=== PATIENT | male | born 1985 | race Caucasian/White ===

== ENCOUNTER 2019-09-22 14:02 | Emergency (ER) | payer SELFPAY ==
--- NOTE | ~2019-09-22 | CT_ITS ---
EXAMINATION: CT abdomen pelvis wo con DATE: 09/22/2019 15:14 INDICATION: Flank pain TECHNIQUE: Computed tomography (CT) of the abdomen and pelvis was performed without intravenous contr ast. The dose-length product (DLP) was 182.96 mGy-cm. Automated exposure control and iterative recons truction technique were employed. COMPARISON: None FINDINGS: The lung bases are clear. The heart size is normal. The liver, spleen, pancreas, gallbladde r, and adrenal glands are normal. The kidneys are unremarkable. No stones are identified in the kidne ys, ureters, or bladder. There is no hydronephrosis or hydroureter. No pathologically enlarged abdomi nal or pelvic lymph nodes are identified. There is no free intraperitoneal gas or evidence of bowel o bstruction. The appendix is normal. IMPRESSION: 1. No CT correlate for the patient's symptoms. 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
[2019-09-22 14:06] VITALS: BP 133/86; PULSE 63; RESP 18; TEMP 36.7; O2SAT 98
--- NOTE | 2019-09-22 14:18 | ED.GENADULT ---
HPI - General Adult General Chief complaint: Urogenital-Male Stated complaint: left flank pain Time Seen by Provider: 09/22/19 14:17 Source: patient Mode of arrival: ambulatory Limitations: no limitations History of Present Illness HPI narrative: Patient is here for evaluation of left flank and back pain. Started several days ago he did notice that he gets some relief after urination and the volume of urine has been somewhat decreased. He denies any fever, penile discharge or blood in his urine. He states that there is no real history of kidney stones in himself or his family. Onset (ago): day(s) Location: left Radiation: back Severity: moderate Quality: burning Relieving factors: none Exacerbating factors: none Associated symptoms: denies other symptoms Treatments prior to arrival: NSAID (no relief) Related Data Home Medications Medication Instructions Recorded Confirmed No Home Medications 09/22/19 09/22/19 Allergies Allergy/AdvReac Type Severity Reaction Status Date / Time No Known Allergies Allergy Unknown Verified 09/22/19 14:15 Review of Systems Review of Systems: All systems reviewed & are unremarkable except as noted in HPI and below [facility] Past Medical History Medical History (Updated 09/22/19 @ 15:53 by Gabby George PA-C) Cleft palate Social History Social History (Updated 09/22/19 @ 14:26 by Gabby George PA-C) Smoking status: Never smoker Alcohol intake: never Substance use: never Living arrangements: alone Occupation/Education: occupation 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 Exam Const: General: no acute distress Orientation/consciousness: patient oriented x3 HENMT: Head: normal to inspection Eyes: Pupils: Equal, round and reactive pupils present Resp: Effort & Inspection: normal respiratory effort Auscultation: clear to auscultation bilaterally Cardio: Rate: regular rate Rhythm: regular rhythm GI: GI Palp: Yes Soft to palpation and Yes Tenderness to palpation present (GI) (left lower abdomen and suprapubic) Auscultation: normal bowel sounds : General: Yes no CVA tenderness Skin: General skin exam: normal color Rashes: no rashes Neuro: General: patient oriented x3 Psych: Mental Status: mental status grossly normal Course Course Emergency Course: Radiology and lab results reviewed with patient. There is no evidence of renal stone at this time. Further exam patient does wear his wallet on the left hip pocket and perhaps that is contributing to pressure and pain in that region. Will treat as musculoskeletal pain at this time, treat with Tylenol or ibuprofen as needed. Vital Signs Vital signs: Vital Signs Temperature 36.7 C 09/22/19 14:06 Pulse Rate 63 09/22/19 14:06 Respiratory Rate 18 09/22/19 14:06 Blood Pressure 133/86 09/22/19 14:06 Pulse Oximetry 98 09/22/19 14:06 Temperature 36.7 C 09/22/19 14:06 Pulse Rate 63 09/22/19 14:06 Respiratory Rate 18 09/22/19 14:06 Blood Pressure 133/86 09/22/19 14:06 Pulse Oximetry 98 09/22/19 14:06 Medical Decision Making Vital Signs Vital Signs: Vital Signs Temperature 36.7 C 09/22/19 14:06 Pulse Rate 63 09/22/19 14:06 Respiratory Rate 18 09/22/19 14:06 Blood Pressure 133/86 09/22/19 14:06 Pulse Oximetry 98 09/22/19 14:06 Temperature 36.7 C 09/22/19 14:06 Pulse Rate 63 09/22/19 14:06 Respiratory Rate 18 09/22/19 14:06 Blood Pressure 133/86 09/22/19 14:06 Pulse Oximetry 98 09/22/19 14:06 Lab Data Result diagrams: 09/22/19 14:18 09/22/19 14:18 Labs: Lab Results 09/22/19 09/22/19 09/22/19 Range/Units 14:18 14:18 14:18 WBC 7.2 (4.5-10.0) K/mm3 RBC 5.27 (4.6-6.20) M/mm3 Hgb 15.6 (14.0-18.0) g/dL Hct 46.2 (42.0-52.0) % MCV 87.7 (80-100) fl MCH 29.6 (26-34) pg MCHC 33.8 (32-36) g/dl RDW 12.5 (11.5-14.5) % Plt Count 193
[2019-09-22 14:30] LABS: Basophils Absolute Auto 0.1 K/mm3 (0.0-0.1); Basophils Percent Auto 0.7 % (0.2-1.2); Eosinophils Absolute Auto 0.2 K/mm3 (0-0.3); Hematocrit 46.2 % (42.0-52.0); Hemoglobin 15.6 g/dL (14.0-18.0); Immature Granulocyte Absolute 0.02 K/mm3 (0.00-0.031); Immature Granulocyte Percent A 0.3 % (0-0.5); Lymphocytes Absolute Auto 2.12 K/mm3 (0.9-3.2); Lymphocytes Percent Auto 29.3 % (18.3-44.2); Mean Corpuscular HGB Conc 33.8 g/dl (32-36); Mean Corpuscular Hemoglobin 29.6 pg (26-34); Mean Corpuscular Volume 87.7 fl (80-100); Mean Platelet Volume 9.9 fl (7.4-10.4); Monocytes Absolute Auto 0.6 K/mm3 (0.1-0.6); Monocytes Percent Auto 8.7 % (2.6-8.5); Neutrophils Absolute Auto 4.2 K/mm3 (1.3-6.7); Platelet Count Result 193 k/mm3 (150-375); Red Blood Count 5.27 M/mm3 (4.6-6.20); Red Cell Distribution Width 12.5 % (11.5-14.5); White Blood Count 7.2 K/mm3 (4.5-10.0)
[2019-09-22 14:43] LABS: Alanine Aminotransferase 20 U/L (4-50); Albumin Level 4.4 g/dL (3.5-5.1); Alkaline Phosphatase 61 U/L (38-126); Aspartate Amino Transferase 31 U/L (17-59); Bilirubin,Total 0.5 mg/dL (0.2-1.3); Blood Urea Nitrogen 21 mg/dL (9-20); Calcium 9.2 mg/dL (8.4-10.2); Carbon Dioxide 29 mmol/L (22-30); Chloride 104 mmol/L (98-107); Estimated CRCL calculation 87 ml/min; Estimated Glomerular Filt Rate > 60; Glucose 117 mg/dL (75-110); Potassium 3.8 mmol/L (3.4-5.0); Sodium 138 mmol/L (137-145)
[2019-09-22 14:45] LABS: Add Urine Microscopic? YES; Appearance Urine Clear (Clear); Bilirubin Urine Negative (Negative); Blood Urine Negative (Negative); Color Urine Yellow (Yellow); Glucose Urine UA 1+ mg/dL (Negative); Ketones Urine Negative (Negative); Leukocyte Esterase Ur Negative LEU/UL (Negative); Mucus Urine Heavy /lpf; Nitrate Urine Negative (Negative); Protein Urine Negative (Negative); Urobilinogen Urine Negative mg/dL (<2.0); WBC Urine 0-3 /hpf
[2019-09-22 14:46] LABS: Specific Grav Ur 1.033 (1.001-1.035)
[2019-09-22] MEDS: KETOROLAC 30 MG/ML VIAL (*BKC) IV PUSH (15:37)
== END 2019-09-22 16:08 | disposition home or self-care (01) ==
PROVIDERS: Emergency Provider Emergency Medicine
DX: M54.5 Low back pain (principal)
CPT/HCPCS: 36415; 74176; 80053; 81001; 85025; 96374; 99284; J1885

== ENCOUNTER 2019-10-07 09:16 | Emergency (ER) | payer SELFPAY ==
[2019-10-07 09:23] VITALS: BP 139/96; PULSE 84; RESP 18; TEMP 36.8; O2SAT 100
--- NOTE | 2019-10-07 09:26 | ED.URI ---
HPI - URI/Sore Throat General Chief Complaint: Upper Respiratory Infection Stated Complaint: congestion Time Seen by Provider: 10/07/19 09:25 Source: patient and RN notes reviewed Mode of arrival: ambulatory Limitations: no limitations History of Present Illness HPI Narrative: Pt is a 34 y/o male who presents to the ED with c/o congestion that started a week ago. Pt reports associated sinus drainage, morning cough, rhinorrhea, watery eyes, and puffy under eyes. Pt states that he has been cutting his grass and cleaning up leaves in the last week. He states that he started using flonase, 2 squirts in each nostril every morning for 4 days and notes that it usually gives him some relief by the mid-day. Pt states that he used to use claritin and [place] for his allergies but it never gave him any relief. He used to see Dr. Coronel, as his PCP, but has not seen him in a while. Pt denies sore throat, fever, chills, sweats, itchy eyes, sneezing, CP, or SOB. 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 MD elicited complaint: nasal congestion Pertinent past history: seasonal allergies Onset (ago): week(s) (1) Consistency: constant Relieving factors: nasal spray (flonase) Context: other (cutting grass) Associated symptoms: other (sinus drainage, morning cough, rhinorrhea, watery eyes, and puffy under eyes) Related Data Home Medications Medication Instructions Recorded Confirmed fluticasone propionate INTRANASAL 10/07/19 Allergies Allergy/AdvReac Type Severity Reaction Status Date / Time No Known Allergies Allergy Unknown Verified 10/07/19 09:27 Review of Systems Review of Systems: All systems reviewed & are unremarkable except as noted in HPI and below Constitutional: Constitutional: Denies chills, Denies fever(s) and Denies other (sweats) Eyes: Eyes: Denies itchy eyes and Reports other (watery eyes, puffy under eyes) ENT: Reports nasal congestion, Reports nasal discharge, Reports post nasal drip, Denies sore throat and Denies other (sneezing) Cardiovascular: Cardiovascular: Denies chest pain Respiratory: Respiratory: Reports cough (morning) and Denies dyspnea PMFSH Past Medical History Medical History Cleft palate Surgical History Surgical History (Updated 10/07/19 @ 09:41 by Aby Poon) History of facial surgery d/t cleft palate Social History Social History Smoking status: Never smoker Alcohol intake: never Substance use: never 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 Exam Const: General: cooperative, no acute distress and alert Nutritional Appearance: well nourished Orientation/consciousness: patient oriented x3 Limitations: no limitations HENMT: Face and sinus: edema bilaterally periorbital (consistent with allergic shiners ) Mouth: Yes lip normal and Yes moist mucous membranes Resp: Effort & Inspection: normal respiratory effort Auscultation: clear to auscultation bilaterally Cardio: Rate: regular rate Rhythm: regular rhythm GI: GI Palp: Yes Soft to palpation and No Tenderness to palpation present (GI) Auscultation: normal bowel sounds Skin: General skin exam: normal color Neuro: General: patient oriented x3 Cognition (Neuro): normal cognition Speech: normal speech Extrem: General: normal to inspection, full ROM and no clubbing, cyanosis or edema Psych: Mental Status: mental status grossly normal Affect: normal affect Attitude: cooperative Course Course Emergency Course: Patient with longstanding history of seasonal allergies with similar symptomatology. Patient clinical appearance consistent with seasonal allergic rhinitis. Will prescribe antihistamine and Singulair as patient has had poor relief from antihistamines alone in the past. Advised to continue using nasal steroid. Vital Signs Vital signs: Vital Signs Temperature 98
== END 2019-10-07 09:56 | disposition home or self-care (01) ==
PROVIDERS: Emergency Provider Emergency Medicine
DX: J30.2 Other seasonal allergic rhinitis (principal)
CPT/HCPCS: 99283

== ENCOUNTER 2021-05-20 16:46 | Emergency (ER) | payer SELFPAY ==
[2021-05-20 17:17] VITALS: BP 141/82; PULSE 81; RESP 20; TEMP 37; O2SAT 98
--- NOTE | 2021-05-20 19:19 | PC.NURSE ---
no answer at triage
== END 2021-05-20 19:31 | disposition left against medical advice (07) ==
DX: Z53.21 Procedure and treatment not carried out due to patient leaving prior to being seen by health care provider (principal)
CPT/HCPCS: 99199

== ENCOUNTER 2021-08-07 06:08 | Emergency (ER) | payer SELFPAY ==
[2021-08-07 06:16] VITALS: BP 127/82; PULSE 84; RESP 15; TEMP 36.6; O2SAT 100
--- NOTE | 2021-08-07 06:21 | ED.URI ---
HPI - URI/Sore Throat General Chief Complaint: Unspecified Stated Complaint: sore throat Time Seen by Provider: 08/07/21 06:17 Source: patient History of Present Illness HPI Narrative: Patient presents with sore throat. Reports he had a sore throat for the past few days getting progressively worse and now it hurts to swallow so he came to the ER for evaluation reports subjective fevers denies any cough denies any nausea or vomiting denies any known sick contacts. Related Data Home Medications Medication Instructions Recorded Confirmed fluticasone propionate INTRANASAL 10/07/19 Allergies Allergy/AdvReac Type Severity Reaction Status Date / Time No Known Allergies Allergy Unknown Verified 08/07/21 06:19 Review of Systems Review of Systems: CONSTITUTIONAL: Denies fever, chills, or sweats. EYES: Denies visual changes, redness, or discharge. ENT: Denies rhinorrhea, congestion, or otalgia. CARDIOVASCULAR: Denies chest pain, palpitations, or edema. RESPIRATORY: Denies cough or dyspnea. GASTROINTESTINAL: Denies abdominal pain, nausea, vomiting, or diarrhea. GENITOURINARY: Denies dysuria or hematuria. SKIN: Denies rash or itching. MUSCULOSKELETAL: Denies back pain, joint pain, or myalgia. NEUROLOGIC: Denies headache, numbness, dizziness, or weakness. PSYCHIATRIC: Denies anxiety or depression. 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 HEAD: Normocephalic, atraumatic. EYES: PERRLA and EOMI. ENT: Nares clear, no rhinorrhea or epistaxis. Mucous membranes moist. Erythema and edema in the posterior oropharynx no exudates no uvular deviation NECK: Supple. No masses. No JVD no lymphadenopathy CHEST: Clear to auscultation. No respiratory distress. No wheezes rales or rhonchi HEART: Regular rate and rhythm. No murmur heard. Normal peripheral pulses. EXTREMITIES: Normal range of motion. No edema. SKIN: Warm, dry, no rash. NEURO: No focal deficits. Alert and oriented x3. PSYCH: Normal mood and affect. Course Reevaluation(s) Reevaluation #1: Patient resting comfortably results reviewed with patient. Patient comfortable with outpatient plan. Date: 08/07/21 Time: 06:49 Vital Signs Vital signs: Vital Signs Temperature 36.6 C 08/07/21 06:16 Pulse Rate 84 08/07/21 06:16 Respiratory Rate 15 08/07/21 06:16 Blood Pressure 127/82 08/07/21 06:16 Pulse Oximetry 100 08/07/21 06:16 Temperature 36.6 C 08/07/21 06:16 Pulse Rate 87 08/07/21 07:02 Respiratory Rate 15 08/07/21 07:02 Blood Pressure 123/82 08/07/21 07:02 Pulse Oximetry 97 08/07/21 07:02 MDM - URI/Sore Throat MDM Narrative Medical decision making narrative: H&P as above, vss, pt looks clinically well, exam erythema and edema in the posterior pharynx no lymphadenopathy or exudates appreciated labs with negative rapid strep cultures pending, additional labs/img considered, symptomatic relief available as needed, on reevaluation pt continues to looks clinically well. Symptoms may be either viral pharyngitis or strep pharyngitis, dns peritonsillar abscess, severe sepsis, airway compromise. plan to tx/monitor as op w/ pcm f/u findings/plan discussed with pt, pt agree/comfortable with plan, return precautions given. Patient struck to follow-up on his culture results via MyChart if his culture is positive he should initiate antibiotics otherwise he should treat wi
[2021-08-07] MEDS: KETOROLAC 30 MG/ML VIAL (*BKC) IM (06:33)
[2021-08-07 07:02] VITALS: BP 123/82; PULSE 87; RESP 15; O2SAT 97
== END 2021-08-07 07:03 | disposition home or self-care (01) ==
PROVIDERS: Emergency Provider Emergency Medicine
DX: J02.9 Acute pharyngitis, unspecified (principal)
CPT/HCPCS: 87081; 87880; 96372; 99283; J1885

== ENCOUNTER 2022-02-03 15:09 | Emergency (ER) | payer SELFPAY ==
--- NOTE | ~2022-02-03 | XR_ITS ---
EXAM: XR finger 2nd LT min 2V DATE: 02/03/2022 16:57 HISTORY: fish hook removal , looking for cortical defect . COMPARISON: None available. FINDINGS: Normal mineralization. No fracture or dislocation. No lytic or blastic lesion. Joint space s are maintained. No erosion or periosteal change. Soft tissues within normal limits. IMPRESSION: No acute osseous finding in the left second finger. Reviewed, dictated and finalized at location K.
[2022-02-03 15:59] VITALS: BP 130/88; PULSE 105; RESP 20; TEMP 36.3; O2SAT 99
--- NOTE | 2022-02-03 16:38 | ED.SKABFB ---
HPI - Skin/Abscess/Foreign Bdy General Chief complaint: Skin/Abscess/Foreign Body Stated complaint: fish hook in finger Time Seen by Provider: 02/03/22 16:02 History of Present Illness HPI narrative: Patient is a 36-year-old male who presents ER with a fishhook in his left second digit. Reports his daughter was fishing when she jerked the fishing line and the hook came out of the water and impaled him in the digit. No numbness or tingling. Tetanus updated 4 years ago. No additional concerns. Related Data Home Medications Medication Instructions Recorded Confirmed fluticasone propionate 50 intranasal 10/07/19 mcg/actuation nasal spray,suspension Allergies Allergy/AdvReac Type Severity Reaction Status Date / Time No Known Allergies Allergy Unknown Verified 08/07/21 06:19 Review of Systems Musculoskeletal: Comments: left 2nd digit FB with pain Integumentary/Breasts: Skin/Breast: Denies erythema, Denies rash and Denies skin ulcer Neurologic: Denies focal weakness and Denies numbness PMFSH Past Medical History Medical History Cleft palate Surgical History Surgical History History of facial surgery d/t cleft palate Social History Social History Smoking status: Never smoker Alcohol intake: never Substance use: never 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 HEAD: Normocephalic, atraumatic. EXTREMITIES: Normal range of motion. No edema. [place] embedded in the distal tip of the second digit on the left hand. Normal sensation. Normal range of motion. SKIN: Warm, dry, no rash. NEURO: No focal deficits. Alert and oriented x3. PSYCH: Normal mood and affect. Course Vital Signs Vital signs: Vital Signs Temperature 97.4 F L 02/03/22 15:59 Pulse Rate 105 H 02/03/22 15:59 Respiratory Rate 20 02/03/22 15:59 Blood Pressure 130/88 02/03/22 15:59 Pulse Oximetry 99 02/03/22 15:59 Oxygen Delivery Room Air 02/03/22 15:59 Temperature 97.4 F L 02/03/22 15:59 Pulse Rate 105 H 02/03/22 15:59 Respiratory Rate 20 02/03/22 15:59 Blood Pressure 130/88 02/03/22 15:59 Pulse Oximetry 99 02/03/22 15:59 Oxygen Delivery Room Air 02/03/22 15:59 Procedures Foreign Body Removal Foreign Body #1: Foreign Body Removal Date: 02/03/22 Foreign Body Removal Time: 16:30 Site: other (2nd digit, left) Description of foreign body: fish hook Sedation/Analgesia: other (Digital block with 1% lidocaine 2 mL.) Technique: incision made to facilitate removal Confirmed by:: direct visualization and radiograph Complications: none Neurovascular: normal capillary fill MDM - Skin/Abscess/Foreign Bdy Imaging Data Radiologist's impression: ITS Impressions Finger X-Ray 02/03/22 17:02 IMPRESSION: No acute osseous finding in the left second finger. Discharge Plan Discharge Clinical Impression: Fish hook in finger Patient Disposition: Home, Self-Care Condition: Stable Instructions: Antibiotic Form Additional Instructions: Return the ER if you have had such that finger, extreme pus, develop fever over 100.4 ?F, you have additional concerns. Prescriptions: New ciprofloxacin HCl [Cipro] 500 mg tablet 500 mg PO Q12H Qty: 14 0RF No Action Cepacol Instamax Sore Throat 15-20 mg lozenge 1 twila mucous membrane 4-12XD PRN (Reason: sore throat) Qty: 16 0RF amoxicillin 500 mg capsule 500 mg PO Q12H Qty: 20 0RF fluticasone propionate 50 mcg/actuation spray,suspension INTRANASAL fexofenadine [Jackie Allergy] 180 mg tablet 180 mg PO DAILY Qty: 30 0RF montelukast [Singulair] 10 mg tablet 10 mg PO DAILY Qt
== END 2022-02-03 17:51 | disposition home or self-care (01) ==
PROVIDERS: Emergency Provider Emergency Medicine
DX: S60.451A Superficial foreign body of left index finger, initial encounter (principal); W45.8XXA Other foreign body or object entering through skin, initial encounter
CPT/HCPCS: 10120; 73140; 99283

== ENCOUNTER 2022-08-26 10:54 | Emergency (ER) | payer SELFPAY ==
[2022-08-26 11:29] VITALS: BP 142/75; PULSE 69; RESP 16; TEMP 36.8; O2SAT 100
--- NOTE | 2022-08-26 13:42 | ED.URI ---
HPI - URI/Sore Throat General Chief Complaint: Upper Respiratory Infection Stated Complaint: congestion, throat and ears hurting Time Seen by Provider: 08/26/22 11:43 History of Present Illness HPI Narrative: Patient is a 37-year-old male who presents ER with cold symptoms. He has had sinus congestion for the last week. Associate with rhinorrhea. He blows a lot of snot out when he is in the shower. No fevers or chills or sweats. He feels pressure in his ears bilaterally. No dizziness. No fevers or chills or sweats. No known sick contacts. He has not taken COVID test. He has not had any improvement with DayQuil or NyQuil. Related Data Home Medications Medication Instructions Recorded Confirmed fluticasone propionate 50 intranasal 10/07/19 mcg/actuation nasal spray,suspension Allergies Allergy/AdvReac Type Severity Reaction Status Date / Time No Known Allergies Allergy Unknown Verified 08/07/21 06:19 Review of Systems Constitutional: Constitutional: Denies chills, Denies fatigue and Denies fever(s) ENT: Denies dizziness, Reports nasal congestion and Denies sore throat Comments: Rhinorrhea Respiratory: Respiratory: Denies cough, Denies dyspnea and Denies wheezing Gastrointestinal: Gastrointestinal: Denies abdominal pain, Denies nausea and Denies vomiting PMFSH Past Medical History Medical History Cleft palate Surgical History Surgical History History of facial surgery d/t cleft palate Social History Social History Smoking status: Never smoker Alcohol intake: never Substance use: never Living arrangements: alone Occupation/Education: occupation 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 HEAD: Normocephalic, atraumatic. ENT: Mucous membranes moist. Tympanic membranes normal bilaterally. NECK: Supple. CHEST: Clear to auscultation. No respiratory distress. HEART: Regular rate and rhythm. Normal peripheral pulses. NEURO: Alert and oriented x3. PSYCH: Normal mood and affect. Course Course Emergency Course: Discussed URI signs and symptoms and need for conservative treatment. No indication for antibiotics. No additional testing to be performed here. Discharged with Mucinex D. Vital Signs Vital signs: Vital Signs Temperature 98.2 F 08/26/22 11:29 Pulse Rate 69 08/26/22 11:29 Respiratory Rate 16 08/26/22 11:29 Blood Pressure 142/75 H 08/26/22 11:29 Pulse Oximetry 100 08/26/22 11:29 Temperature 98.2 F 08/26/22 11:29 Pulse Rate 69 08/26/22 11:29 Respiratory Rate 16 08/26/22 11:29 Blood Pressure 142/75 H 08/26/22 11:29 Pulse Oximetry 100 08/26/22 11:29 Discharge Plan Discharge Clinical Impression: Upper respiratory infection Patient Disposition: Home, Self-Care Condition: Stable Instructions: Upper Respiratory Infection (ED) Additional Instructions: Return the ER if you cannot breathe, you cannot keep down food or water, you have chest pain or shortness of breath, you have additional concerns. Prescriptions: New pseudoephedrine-guaifenesin [Mucus D] 60-600 mg tablet extended release 12 hr 1 tablet PO BID PRN (Reason: cold symptoms) Qty: 14 0RF No Action Cepacol Instamax Sore Throat 15-20 mg lozenge 1 twila mucous membrane 4-12XD PRN (Reason: sore throat) Qty: 16 0RF amoxicillin 500 mg capsule 500 mg PO Q12H Qty: 20 0RF fluticasone propionate 50 mcg/actuation spray,suspension INTRANASAL fexofenadine [Jackie Allergy] 180 mg tablet 180 mg PO DAILY Qty: 30 0RF montelukast [Singulair] 10 mg tablet 10 mg PO DAILY Qty: 30 0RF ciprofloxacin HCl [Cipro] 500 mg tablet 500 mg PO Q12H Qty: 14 0RF Follow-up/Referral
== END 2022-08-26 14:07 | disposition home or self-care (01) ==
PROVIDERS: Emergency Provider Emergency Medicine
DX: J06.9 Acute upper respiratory infection, unspecified (principal)
CPT/HCPCS: 99283

== ENCOUNTER 2023-07-29 10:20 | Emergency (ER) | payer SELFPAY ==
[2023-07-29] VITALS (17 sets, daily range): BP systolic 117–127; BP diastolic 74–81; PULSE 97–105; RESP 16; TEMP 37.8; O2SAT 95–99
--- NOTE | ~2023-07-29 | XR_ITS ---
EXAMINATION: XR chest 1V portable DATE: 07/29/2023 15:41 INDICATION: Cough with nausea and vomiting TECHNIQUE: frontal view of the chest was obtained. COMPARISON: Chest radiograph dated 08/25/2018 FINDINGS: The lungs are clear with no focal airspace opacities, pulmonary edema, pleural effusion or pneumothor ax. The cardiomediastinal silhouette is normal. Visualized bones and soft tissues are unremarkable. IMPRESSION: 1. No acute cardiopulmonary disease. 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
--- NOTE | 2023-07-29 11:01 | ED.NAVMDI ---
HPI - Nausea/Vomiting/Diarrhea General Chief complaint: Nausea/Vomiting/Diarrhea <Lizz Guerrero PA-C - Last Filed: 07/29/23 17:19> Stated complaint: vomiting/fever <Lizz Guerrero PA-C - Last Filed: 07/29/23 17:19> Time Seen by Provider: 07/29/23 11:02 <Lizz Guerrero PA-C - Last Filed: 07/29/23 17:19> Focused HPI: This is a 38-year-old male that presents to the emergency department for symptoms present over the last 4 days. Reports cough, congestion, vomiting, and diarrhea. Also reports fevers. GENERAL: Well-appearing, well-nourished, and in no acute distress. HEAD: Normocephalic, atraumatic. CHEST: No respiratory distress. HEART: Regular rate NEURO: Alert and oriented x3. Patient screened in triage and initial orders placed. Additional care and disposition to be based upon diagnostic testing and treatment. <Lizz Guerrero PA-C - Last Filed: 07/29/23 17:19> Focused HPI: This is a 38-year-old male that presents to the emergency department for symptoms present over the last 4 days. Reports cough, congestion, vomiting, and diarrhea. Also reports fevers. GENERAL: Well-appearing, well-nourished, and in no acute distress. HEAD: Normocephalic, atraumatic. CHEST: No respiratory distress. HEART: Regular rate NEURO: Alert and oriented x3. Patient screened in triage and initial orders placed. Additional care and disposition to be based upon diagnostic testing and treatment. <Kiran Mercado MD - Last Filed: 07/29/23 18:42> History of Present Illness HPI Narrative: 38-year-old male presents to the emergency department for evaluation of increased cough and congestion over last few days. Patient also does report associated nausea and vomiting. Patient denies any associated chest pain or abdominal pain. <Kiran Mercado MD - Last Filed: 07/29/23 18:42> Related Data Home medications: Home Medications Medication Instructions Recorded Confirmed fluticasone propionate 50 intranasal 10/06/20 mcg/actuation nasal spray,suspension <Lizz Guerrero PA-C - Last Filed: 07/29/23 17:19> Allergies/Adverse reactions: Allergies Allergy/AdvReac Type Severity Reaction Status Date / Time No Known Allergies Allergy Unknown Verified 08/07/21 06:19 <Lizz Guerrero PA-C - Last Filed: 07/29/23 17:19> Review of Systems Review of Systems: All systems reviewed & are unremarkable except as noted in HPI and below <Kiran Mercado MD - Last Filed: 07/29/23 18:42> PMFSH Past Medical History Medical History: Medical History Cleft palate <Lizz Guerrero PA-C - Last Filed: 07/29/23 17:19> Surgical History Surgical History: Surgical History History of facial surgery d/t cleft palate <Lizz Guerrero PA-C - Last Filed: 07/29/23 17:19> Social History Social History: Social History Smoking status: Never smoker Alcohol intake: never Substance use: never Living arrangements: alone Occupation/Education: occupation 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 HEAD: normocephalic, atraumatic. EYES: PERRLA/EOMI, conjunctivae clear. NOSE: Normal no drainage EARS:TMS clear with good light reflex. THROAT: Pharynx clear, no exudate. NECK: Supple. No adenopathy, no masses. RESPIRATORY: Airway patent, respirations nonlabored. Clear to auscultation bilaterally, no rales, rhonchi, wheezing. CARDIOVASCULAR: Regular rate and rhythm without murmurs rubs or gallops. ABDOMINAL: Soft, nontender, nondistended, normal bowel sounds MUSCULOSKELETAL: Moves all extremities. Strength/ROM intact, No edema, No calf tenderness. NEURO: Alert. Crani
[2023-07-29 11:23] LABS: Basophils Percent Auto 0.5 % (0.2-1.2); Eosinophils Absolute Auto 0.1 K/mm3 (0-0.3); Eosinophils Percent Auto 2.1 % (0-4.4); Hematocrit 47.4 % (42.0-52.0); Hemoglobin 15.9 g/dL (14.0-18.0); Immature Granulocyte Absolute 0.01 K/mm3 (0.00-0.031); Immature Granulocyte Percent A 0.2 % (0-0.5); Lymphocytes Absolute Auto 0.95 K/mm3 (0.9-3.2); Lymphocytes Percent Auto 21.8 % (18.3-44.2); Mean Corpuscular HGB Conc 33.5 g/dl (32-36); Mean Corpuscular Volume 89.4 fl (80-100); Mean Platelet Volume 9.8 fl (7.4-10.4); Monocytes Absolute Auto 0.8 K/mm3 (0.1-0.6); Monocytes Percent Auto 17.2 % (2.6-8.5); Neutrophils Absolute Auto 2.5 K/mm3 (1.3-6.7); Neutrophils Percent Auto 58.2 % (45.5-73.1); Platelet Count Result 144 k/mm3 (150-375); White Blood Count 4.4 K/mm3 (4.5-10.0)
[2023-07-29 11:42] LABS: Alanine Aminotransferase 26 U/L (6-50); Albumin Level 4.6 g/dL (3.5-5.1); Alkaline Phosphatase 50 U/L (38-126); Anion Gap 9 mmol/L (8-16); Aspartate Amino Transferase 30 U/L (17-59); Bilirubin,Total 0.5 mg/dL (0.2-1.3); Blood Urea Nitrogen 23 mg/dL (9-20); Calcium 8.7 mg/dL (8.4-10.2); Carbon Dioxide 30 mmol/L (22-30); Chloride 102 mmol/L (98-107); Estimated CRCL calculation 74 ml/min; Estimated Glomerular Filt Rate > 60; Glucose 103 mg/dL (65-110); Lipase 85 U/L (23-300); Potassium 3.9 mmol/L (3.4-5.0); Sodium 141 mmol/L (137-145)
[2023-07-29 11:54] LABS: Appearance Urine Clear (Clear); Bacteria Urine None Seen /hpf; Bilirubin Urine Negative (Negative); Blood Urine 2+ (Negative); Color Urine Dark Yellow (Yellow); Glucose Urine UA 1+ mg/dL (Negative); Ketones Urine Trace mg/dL (Negative); Leukocyte Esterase Ur Negative LEU/UL (Negative); Nitrate Urine Negative (Negative); Non Pathogenic Casts 0-2; Protein Urine 1+ mg/dL (Negative); RBC Urine 21-50 /hpf (0-2); Squamous Epithelial Cell Urine None seen /hpf (Few); WBC Urine 0-5 /hpf
[2023-07-29 11:55] LABS: Specific Grav Ur 1.037 (1.001-1.035)
[2023-07-29 11:56] LABS: Add Urine Microscopic? YES
[2023-07-29 12:00] LABS: Influenza A QL RT-PCR Negative (Negative); Influenza B QL RT-PCR Positive (Negative); RSV RNA, RT-PCR Negative (Negative); SARS-CoV-2 RNA PCR Negative (Negative)
[2023-07-29] MEDS: ACETAMINOPHEN 500 MG TABLET 1000 MG PO (15:12)
[2023-07-29] MEDS: ONDANSETRON INJ 4 MG/2 ML VIAL IV PUSH (15:16)
[2023-07-29] MEDS: SODIUM CHLORIDE 0.9% IV 1,000 ML 999 ML IV CONT (15:16)
== END 2023-07-29 17:35 | disposition home or self-care (01) ==
PROVIDERS: Physician Assistant; Emergency Provider Emergency Medicine
DX: J10.1 Influenza due to other identified influenza virus with other respiratory manifestations (principal); Z20.822 Contact with and (suspected) exposure to COVID-19
CPT/HCPCS: 36415; 71045; 80053; 81001; 83690; 85025; 87637; 96361; 96374; 99284; A9270; J2405; J7030

== ENCOUNTER 2023-12-28 10:39 | Emergency (ER) | payer SELFPAY ==
--- NOTE | 2023-12-28 12:23 | ED.GENADULT ---
HPI - General Adult General Chief complaint: Skin/Abscess/Foreign Body Stated complaint: I have poison elvira or poison oak Time Seen by Provider: 12/28/23 11:50 History of Present Illness HPI narrative: 38-year-old male presents to the emergency department for evaluation all of poison elvira. Patient states approximately a week ago he suspects he got poison elvira or poison oak from his yd. Patient does have lesions on his face abdomen and arms. Patient has been trying [id number] remedies with no significant improvement. Patient has taken steroids previously and this helped. Patient denies any difficulty breathing or swallowing. Related Data Home Medications Medication Instructions Recorded Confirmed fluticasone propionate 50 intranasal 10/07/19 mcg/actuation nasal spray,suspension Allergies Allergy/AdvReac Type Severity Reaction Status Date / Time No Known Allergies Allergy Unknown Verified 12/28/23 11:47 Review of Systems Review of Systems: All systems reviewed & are unremarkable except as noted in HPI and below PMFSH Past Medical History Medical History Cleft palate Surgical History Surgical History History of facial surgery d/t cleft palate Social History Social History Smoking status: Never smoker Alcohol intake: never Substance use: never Living arrangements: alone Occupation/Education: occupation 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 HEAD: normocephalic, atraumatic. EYES: PERRLA/EOMI, conjunctivae clear. NOSE: Normal no drainage EARS:TMS clear with good light reflex. THROAT: Pharynx clear, no exudate. NECK: Supple. No adenopathy, no masses. RESPIRATORY: Airway patent, respirations nonlabored. Clear to auscultation bilaterally, no rales, rhonchi, wheezing. CARDIOVASCULAR: Regular rate and rhythm without murmurs rubs or gallops. ABDOMINAL: Soft, nontender, nondistended, normal bowel sounds MUSCULOSKELETAL: Moves all extremities. Strength/ROM intact, No edema, No calf tenderness. NEURO: Alert. Cranial nerves II through XII intact. Grossly intact SKIN: Dermatitis to antecubital fossa, abdominal wall, face Course Course Emergency Course: Patient was started on steroids in the emergency department and discharged home with a script for steroids for suspected poison elvira Medical Decision Making MDM Narrative Medical decision making narrative: 38-year-old male presenting ED for evaluation for poison elvira. Patient was started prednisone emergency department discharged home with prednisone. Differential Diagnosis Differential Diagnosis: Poison elvira, poison oak, poison sumac, allergic dermatitis Discharge Plan Discharge Clinical Impression: Poison elvira Patient Disposition: Home, Self-Care Condition: Stable Instructions: Antibiotic Form, Poison Elvira (ED) Additional Instructions: Steroid as directed until completed. Have close follow-up with your primary care physician. [id number] Benadryl as needed for additional itching. If you have any worsening symptoms then please call or return to the emergency department. Prescriptions: New prednisone 50 mg tablet 50 mg PO DAILY Qty: 5 0RF No Action Cepacol Instamax Sore Throat 15-20 mg lozenge 1 twila mucous membrane 4-12XD PRN (Reason: sore throat) Qty: 16 0RF amoxicillin 500 mg capsule 500 mg PO Q12H Qty: 20 0RF fluticasone propionate 50 mcg/actuation spray,suspension INTRANASAL fexofenadine [Jackie Allergy] 180 mg tablet 180 mg PO DAILY Qty: 30 0RF montelukast [Singulair] 10 mg tablet 10 mg PO DAILY Qty: 30 0RF ciprofloxacin HCl [Cipro] 500 mg tablet 500 mg PO Q12H Qty: 14 0RF pseudoephedrine-gu
[2023-12-28] MEDS: predniSONE 20 MG TABLET 40 MG PO (12:44)
== END 2023-12-28 12:47 | disposition home or self-care (01) ==
PROVIDERS: Emergency Provider Emergency Medicine
DX: L23.7 Allergic contact dermatitis due to plants, except food (principal)
CPT/HCPCS: 99283; J7512

== ENCOUNTER 2024-05-20 18:14 | Emergency (ER) | payer SELFPAY ==
--- NOTE | ~2024-05-20 | XR_ITS ---
CHEST RADIOGRAPH, PA AND LATERAL CLINICAL HISTORY: cough FOR 4 DAYS AND PROGRESSIVELY GETTING WORSE . COMPARISON: 04/24/2019 TECHNIQUE: PA and lateral views of the chest. FINDINGS The cardiomediastinal silhouette is unremarkable. The lungs are clear. Visualized osseous structures and soft tissues are unremarkable. IMPRESSION: No focal infiltrate or effusion. 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
[2024-05-20 18:18] VITALS: BP 129/85; PULSE 100; RESP 18; TEMP 36.1; O2SAT 100
[2024-05-20 19:01] LABS: Influenza A QL RT-PCR Negative (Negative); Influenza B QL RT-PCR Negative (Negative); RSV RNA, RT-PCR Negative (Negative); SARS-CoV-2 RNA PCR Negative (Negative)
[2024-05-20 20:09] VITALS: O2SAT 98
--- NOTE | 2024-05-20 20:12 | ED_ITS ---
HPI - General Adult General Chief complaint: Upper Respiratory Infection Stated complaint: congested, sore throat Time Seen by Provider: 05/20/24 20:06 History of Present Illness HPI narrative: patient 38-year-old gentleman presents emergency department with chief complaint of nasal congestion. Patient reports that symptoms started on Friday and report the having a lot of nasal congestion cough productive of some green sputum patient reports that he has had no fever reports that his ears do feel full. Related Data Home Medications Medication Instructions Recorded Confirmed fluticasone propionate 50 intranasal 10/07/19 mcg/actuation nasal spray,suspension Allergies Allergy/AdvReac Type Severity Reaction Status Date / Time No Known Allergies Allergy Unknown Verified 05/20/24 18:16 Review of Systems Review of Systems: A 10 system review of systems was completed on the patient and is negative except for what is stated in the HPI. Nursing and ancillary documentation was reviewed. 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 HEAD: Normocephalic, atraumatic. EYES: PERRLA and EOMI. ENT: Nares clear, no rhinorrhea or epistaxis. Mucous membranes moist. NECK: Supple. CHEST: Clear to auscultation. No respiratory distress. HEART: Regular rate and rhythm. No murmur heard. Normal peripheral pulses. ABDOMEN: Soft, nontender, nondistended, normal active bowel sounds. EXTREMITIES: Normal range of motion. No edema. SKIN: Warm, dry, no rash. NEURO: No focal deficits. Alert and oriented x3. PSYCH: Normal mood and affect. Course Vital Signs Vital signs: Vital Signs Temperature 36.1 C L 05/20/24 18:18 Pulse Rate 100 05/20/24 18:18 Respiratory Rate 18 05/20/24 18:18 Blood Pressure 129/85 05/20/24 18:18 Pulse Oximetry 100 05/20/24 18:18 Temperature 36.1 C L 05/20/24 18:18 Pulse Rate 100 05/20/24 18:18 Respiratory Rate 18 05/20/24 18:18 Blood Pressure 129/85 05/20/24 18:18 Pulse Oximetry 98 05/20/24 20:09 Oxygen Delivery Room Air 05/20/24 20:09 Medical Decision Making MDM Narrative Medical decision making narrative: Differential diagnosis includes pneumonia, upper respiratory infection, COVID, flu, RSV plain film x-ray of the chest showed no evidence pneumonia COVID flu RSV are negative patient this time was likely has a viral upper respiratory infection. The patient was started on steroids given a prescription for Vivian Link and will be recommended to follow up with primary care provider Vital Signs Vital Signs: Vital Signs Temperature 36.1 C L 05/20/24 18:18 Pulse Rate 100 05/20/24 18:18 Respiratory Rate 18 05/20/24 18:18 Blood Pressure 129/85 05/20/24 18:18 Pulse Oximetry 100 05/20/24 18:18 Temperature 36.1 C L 05/20/24 18:18 Pulse Rate 100 05/20/24 18:18 Respiratory Rate 18 05/20/24 18:18 Blood Pressure 129/85 05/20/24 18:18 Pulse Oximetry 98 05/20/24 20:09 Oxygen Delivery Room Air 05/20/24 20:09 Lab Data Labs: Lab Results 05/20/24 Range/Units 18:21 Influenza A (RT-PCR) Negative (Negative) Influenza B (RT-PCR) Negative (Negative) RSV (RT-PCR) Negative (Negative) SARS-CoV-2 RNA (RT-PCR) Negative (Negative) Discharge Plan Discharge Clinical Impression: Upper respiratory infection Patient Disposition: Home, Self-Care Condition: Stable Instructions: Antibiotic Form, Upper Respiratory Infection (ED) Prescriptions: New prednisone 20 mg tablet 40 mg PO DAILY 5 Days Qty: 10 0RF benzonatate 200 mg capsule 200 mg PO TID PRN (Reason: cough) Qty: 21 0RF No Action Cepacol Instamax Sore Throat 15-20 mg lozenge 1 twila mucous membrane 4-12XD PRN (Reason: sore throat) Qty: 16 0RF amoxicillin 500 mg capsule 500 mg PO Q12H Qty: 20 0RF fluticasone propionate 50 mcg/actuation spray,suspension INTRANASAL fexofenadine [Jackie Allergy] 180 mg tablet 180 mg PO DAILY Qty: 30 0RF montelukast [Singulair] 10 mg tablet 10 mg PO DAILY Qty: 30 0RF ciprofloxacin HCl [Cipro] 500 mg tablet 500 mg PO Q12H Qty: 14 0RF pseudoephedrine-guaifenesin [Mucus D] 60-600 mg tablet extended release 12 hr 1 tablet PO BID PRN (Reason: cold symptoms) Qty: 14 0RF ondansetron 4 mg tablet,disintegrating 4 mg PO Q8H PRN (Reason: nausea and vomiting) Qty: 14 0RF benzonatate 100 mg capsule 100 mg PO BID PRN (Reason: cough) Qty: 14 0RF albuterol sulfate 90 mcg/actuation HFA aerosol inhaler 1 inh inhalation QID PRN (Reason: shortness of breath or wheezing) Qty: 6.7 0RF prednisone 50 mg tablet 50 mg PO DAILY Qty: 5 0RF Follow-up/Referrals: PHYSICIAN,[employer] WORKER [Non-Staff] - Mahesh Guzman MD [Physician] - Time of Disposition: 20:20
[2024-05-20] MEDS: BENZONATATE 100 MG CAPSULE 200 MG PO (20:25)
[2024-05-20] MEDS: predniSONE 20 MG TABLET 60 MG PO (20:25)
== END 2024-05-20 20:28 | disposition home or self-care (01) ==
PROVIDERS: Emergency Medicine; Emergency Provider Emergency Medicine
DX: J06.9 Acute upper respiratory infection, unspecified (principal); Z20.822 Contact with and (suspected) exposure to COVID-19
CPT/HCPCS: 71046; 87637; 99283; A9270; J7512